=== PATIENT | male | born 1945 | race Caucasian/White ===

== ENCOUNTER 2019-04-11 17:48 | Emergency (ER) | payer MEDICARE ==
[2019-04-11] MEDS ORDERED: Sodium Chloride 0.9% 1000 ML 1,000 ML IV STA (18:03)
[2019-04-11] MEDS ORDERED: Sodium Chloride 0.9% 1000 ML 1,000 ML ONE (18:09)
--- NOTE | 2019-04-11 18:13 | ERPHSYRPT ---
- History of Present Illness Historian: patient Exam Limitations: no limitations Patient Subjective Stated Complaint: pt here for flank pain since friday, he was dx with UTI. he states he is not better and has chills and nausea today Triage Nursing Assessment: pt alert, resp easy, skin w/d/p, abd soft, Timing/Duration: today Abdominal Pain Onset Location: flank (right) Pain Radiation: groin Severity of Pain-Max: moderate Severity of Pain-Current: moderate Modifying Factors: Improves With: nothing Associated Symptoms: nausea Previous symptoms: no prior history Hx Influenza Vaccination/Date Given: No Hx Pneumococcal Vaccination/Date Given: No Immunizations Up to Date: Yes <KEYA LAM - Last Filed: 04/11/19 19:04> <LROI ROJO - Last Filed: 04/11/19 20:30> - History of Present Illness Time Seen by Provider: 04/11/19 18:10 Physician History: 73-year-old male with significant past medical history of prostatic hyperplasia , type 2 diabetes mellitus, hypertension, obesity was in his usual state of health for 5 days ago. He was seen in the office and was treated for urinary tract infection as well as prostatitis. Since morning today he started having a right sided flank pain which was radiating to the right groin, associated with some nausea. He was also complaining of some fever with chills. Patient came to the emergency room for further evaluation. (KEYA LAM) Allergies/Adverse Reactions: No Known Drug Allergies Allergy (Unverified 04/11/19 18:05) - Review of Systems Constitutional: No Fever, No Chills Eyes: No Symptoms Ears, Nose, & Throat: No Symptoms Respiratory: No Cough, No Dyspnea Cardiac: No Chest Pain, No Edema, No Syncope Abdominal/Gastrointestinal: Abdominal Pain, No Nausea, No Vomiting, No Diarrhea Genitourinary Symptoms: Dysuria, Flank Pain (right side) Musculoskeletal: No Back Pain, No Neck Pain Skin: No Rash Neurological: No Dizziness, No Focal Weakness, No Sensory Changes Psychological: No Symptoms Endocrine: No Symptoms All Other Systems: Reviewed and Negative <KEYA LAM - Last Filed: 04/11/19 19:04> - Past Medical History Pertinent Past Medical History: Yes Cardiac History: High Cholesterol, Hypertension Endocrine Medical History: Diabetes Type II Other Medical History: [facility] 2019 - Past Surgical History Past Surgical History: Yes Other Surgical History: carpal tunnel - Social History Smoking Status: Never smoker Exposure to second hand smoke: No Drug Use: none Patient Lives Alone: No <GENARO - Last Filed: 04/11/19 19:04> - Physical Exam General Appearance: no apparent distress, alert Eye Exam: PERRL/EOMI, eyes nml inspection Ears, Nose, Throat Exam: normal ENT inspection, pharynx normal, moist mucous membranes Neck Exam: normal inspection, non-tender, supple, full range of motion Respiratory Exam: normal breath sounds, lungs clear, No respiratory distress Cardiovascular Exam: regular rate/rhythm, normal heart sounds Gastrointestinal/Abdomen Exam: soft, tenderness (right side CVA), No mass Back Exam: normal inspection, normal range of motion, No CVA tenderness, No vertebral tenderness Extremity Exam: normal inspection, normal range of motion, pelvis stable Neurologic Exam: alert, oriented x 3, cooperative, normal mood/affect, nml cerebellar function, sensation nml, No motor deficits Skin Exam: normal color, warm, dry SpO2: 98 <GENARO - Last Filed: 04/11/19 19:04> - Nursing Vital Signs Nursing Vital Signs: Initial Vital Signs Temperature 97.9 F 04/11/19 18:00 Pulse Rate 66 04/11/19 18:00 Respiratory Rate 16 04/11/19 18:00 Blood Pressure 159/72 04/11/19 18:00 O2 Sat by Pulse Oximetry 98 04/11/19 18:00 Pain Scale Pain Intensity 3 - Course Nursing assessment & vital signs reviewed: Yes - CT Exams Abdomen/Pelvis CT Interpretation: Tele-radiologist Report <GENARO - Last Filed: 04/11/19 19:04> Ordered Tests: Active Orders 24 hr Category Date Time Status ABDOMEN AND PELVIS W/0 CONTRAS [CT] Stat Exams 04/11/19 19:07 Taken CBC W DIFF Stat Lab 04/11/19 18:03 Completed CMP Stat Lab 04/11/19 18:03 Completed CULTURE,URINE Stat Lab 04/11/19 18:04 Ordered UA W/RFX UR CULTURE Stat Lab 04/11/19 19:26 Completed Medication Summary Discontinued Medications Generic Name Dose Route Start Last Admin Trade Name Freq PRN Reason Stop Dose Admin Sodium Chloride 1,000 mls @ 999 mls/hr 04/11/19 18:03 04/11/19 18:11 Sodium Chloride 0.9% 1000 Ml IV 04/11/19 19:03 999 mls/hr .Q1H1M STA Administration Sodium Chloride Confirm 04/11/19 18:09 Sodium Chloride 0.9% 1000 Ml Administered 04/11/19 18:10 Dose 1,000 mls @ ud .ROUTE .STK-MED ONE Lab/Rad Data: Laboratory Result Diagrams 04/11/19 18:03 04/11/19 18:03 Laboratory Results 04/11/19 04/11/19 04/11/19 Range/Units 19:26 18:03 18:03 WBC 13.8 H (4.0-10.5) K/mm3 RBC 4.85 (4.1-5.6) M/mm3 Hgb 14.1 (12.5-18.0) gm/dl Hct 43.9 (42-50) % MCV 90.5 (78-100) fl MCH 29.1 (26-32) pg MCHC 32.1 (32-36) g/dl RDW 14.8 H (11.5-14.0) % Plt Count 162 (150-450) K/mm3 MPV 12.8 H (6-9.5) fl Gran % 74.9 H (36.0-66.0) % Eos # (Auto) 0.08 (0-0.5) Absolute Lymphs (auto) 1.63 (1.0-4.6) Absolute Monos (auto) 1.72 H (0.0-1.3) Lymphocytes % 11.8 L (24.0-44.0) % Monocytes % 12.4 H (0.0-12.0) % Eosinophils % 0.6 (0.00-5.0) % Basophils % 0.3 (0.0-0.4) % Absolute Granulocytes 10.36 H (1.4-6.9) Basophils # 0.04 (0-0.4) Sodium 147 H (137-145) mmol/L Potassium 4.6 (3.5-5.1) mmol/L Chloride 102 (98-107) mmol/L Carbon Dioxide 31 H (22-30) mmol/L Anion Gap 18.1 H (5-15) MEQ/L BUN 33 H (9-20) mg/dL Creatinine 1.86 H (0.66-1.25) mg/dL Estimated GFR 38.1 ML/MIN Glucose 58 L (74-106) mg/dL Calcium 11.1 H (8.4-10.2) mg/dL Total Bilirubin 0.80 (0.2-1.3) mg/dL AST 22 (17-59) U/L ALT 18 (0-50) U/L Alkaline Phosphatase 72 (38-126) U/L Serum Total Protein 7.8 (6.3-8.2) g/dL Albumin 4.1 (3.5-5.0) g/dL Urine Color YELLOW (YELLOW) Urine Appearance CLEAR (CLEAR) Urine pH 5.0 (5-6) Ur Specific Pierce 1.018 (1.005-1.025) Urine Protein NEGATIVE (Negative) Urine Ketones NEGATIVE (NEGATIVE) Urine Blood NEGATIVE (0-5) Buddy/ul Urine Nitrite NEGATIVE (NEGATIVE) Urine Bilirubin NEGATIVE (NEGATIVE) Urine Urobilinogen NEGATIVE (0-1) mg/dL Ur Leukocyte Esterase NEGATIVE (NEGATIVE) Urine WBC (Auto) 0-2 (0-5) /HPF Urine RBC (Auto) NONE (0-2) /HPF U Epithel Cells (Auto) NONE (FEW) /HPF Urine Bacteria (Auto) NONE (NEGATIVE) /HPF Urine Mucus (Auto) SLIGHT (NEGATIVE) /HPF Urine Culture Reflexed ORDERED SEPARATELY (NO) Urine Glucose NEGATIVE (NEGATIVE) mg/dL <KEYA LAM - Last Filed: 04/11/19 19:04> - Progress Counseled pt/family regarding: lab results, diagnosis, need for follow-up, rad results <LORI ROJO - Last Filed: 04/11/19 20:30> - Progress Progress Note: 04/11/19 19:[address] Rojo (KEYA LAM) 04/11/19 20:25 ct abd/pelvis-right ureterolithiasis 7 to 8m at right ureteropelvic junction mild right hydronephrosis and mild perinephric stranding (LORI ROJO) <KEYA LAM - Last Filed: 04/11/19 19:04> - Departure Departure Disposition: Home Critical Care Time: No <LORI ROJO - Last Filed: 04/11/19 20:30> - Departure Clinical Impression: Ureterolithiasis Condition: Stable Referrals: KEYA LAM MD [Primary Care Provider] - Additional Instructions: drink plenty of fluids. take medication as prescribed. follow up tomorrow with urologist as discussed. Prescriptions: Hydrocodone/APAP 5-325 Tab^^^ [[place] 5-325 Tablet^^^] 1 tab PO Q6HPRN PRN #10 tablet MDD 6 PRN Reason: Pain
[2019-04-11 18:56] LABS: Absolute Neutrophil Ct (ANC) 10.36 (1.4-6.9); BASOPHIL % 0.3 % (0.0-0.4); Basophil (Absolute #) 0.04 (0-0.4); Eosinophil % 0.6 % (0.00-5.0); Eosinophil (Absolute #) 0.08 (0-0.5); Hematocrit 43.9 % (42-50); Hemoglobin 14.1 gm/dl (12.5-18.0); Lymphocyte (Absolute #) 1.63 (1.0-4.6); Lymphocytes % 11.8 % (24.0-44.0); Mean Cell Volume 90.5 fl (78-100); Mean Corpuscular Hemoglobin 29.1 pg (26-32); Mean Corpuscular Hgb Concent. 32.1 g/dl (32-36); Mean Platelet Volume 12.8 fl (6-9.5); Monocyte (Absolute #) 1.72 (0.0-1.3); Monocytes % 12.4 % (0.0-12.0); Neutrophil % 74.9 % (36.0-66.0); Platelet Count 162 K/mm3 (150-450); Red Blood Count 4.85 M/mm3 (4.1-5.6); Red Cell Distribution Width 14.8 % (11.5-14.0); White Blood Count 13.8 K/mm3 (4.0-10.5)
[2019-04-11 19:08] LABS: ALBUMIN 4.1 g/dL (3.5-5.0); ANION GAP 18.1 MEQ/L (5-15); BILIRUBIN,TOTAL 0.8 mg/dL (0.2-1.3); Calcium 11.1 mg/dL (8.4-10.2); Creatinine 1 1.86 mg/dL (0.66-1.25); Potassium 4.6 mmol/L (3.5-5.1); Total Protein 7.8 g/dL (6.3-8.2)
[2019-04-11 19:27] VITALS: O2SAT 97
[2019-04-11 19:37] LABS: Appearance CLEAR (CLEAR); Bilirubin NEGATIVE (NEGATIVE); Blood NEGATIVE Ery/ul (0-5); Glucose NEGATIVE (NEGATIVE); Ketones NEGATIVE (NEGATIVE); Leukocyte Esterase NEGATIVE (NEGATIVE); Mucus SLIGHT /HPF (NEGATIVE); Nitrite NEGATIVE (NEGATIVE); Protein,Urine Dip NEGATIVE (Negative); Specific Gravity 1.018 (1.005-1.025); Urobilinogen NEGATIVE mg/dL (0-1); WBC 0-2 /HPF (0-5)
[2019-04-11] MEDS ORDERED: Hydromorphone 1 mg/ml Ampule IV ONE (20:30)
[2019-04-11] MEDS ORDERED: Zofran 4 MG/2 ML VIAL IV ONE (20:31)
[2019-04-11] MEDS ORDERED: NORCO 5/325 MG PO ONE (20:34)
[2019-04-11] MEDS ORDERED: Zofran 4 MG/2 ML VIAL ONE (20:34)
[2019-04-11] MEDS ORDERED: Hydromorphone 1 mg/ml Ampule ONE (20:35)
[2019-04-11] MEDS ORDERED: NORCO 5/325 MG ONE (21:12)
[2019-04-11 21:47] VITALS: BP 145/60; PULSE 70
[2019-04-12 00:50] LABS: Slide Review 1 YES
--- NOTE | 2019-04-12 09:16 | XRAY ---
Indication: Right flank pain. Multiple contiguous axial images obtained through the abdomen and pelvis without contrast as ordered. Comparison: None Lung bases demonstrate minimal bibasilar dependent atelectasis. No infiltrate or effusion. Heart is not enlarged. Noncontrasted stomach and bowel loops appear nonobstructed. Normal appendix. Mild diffuse scattered colonic fecal debris and scattered colonic diverticulosis, greatest in the sigmoid colon. No free fluid/air. There is a 8 mm right UVJ calculus with moderate hydronephrosis and mild renal edema. A few additional punctate right renal calculi. 1.2 cm left mid renal exophytic cyst. 19.5 cm fatty hepatomegaly. Remaining liver, gallbladder, pancreas, spleen, adrenal glands, left kidney, left ureter, and bladder appear unremarkable for noncontrast exam. Mild scattered vascular calcifications. No AAA. Osseous structures intact with moderate degenerative changes throughout the thoracolumbar spine. Impression: 1. 8 mm right UVJ calculus producing obstructive uropathy as detailed. Additional right renal micro-calculi. 2. Incidental left renal cyst, fatty hepatomegaly, mild fecal stasis, and colonic diverticulosis. Comment: Preliminary interpretation was made by [facility]. No critical discrepancy. CTDI 23.68
== END 2019-04-11 21:47 | disposition home or self-care (01) ==
LOC: ED 17:48
DX: N13.2 Hydronephrosis with renal and ureteral calculous obstruction (principal)
CPT/HCPCS: 36415; 74176; 80053; 81001; 85025; 87086; 96360; 96374; 96375; 99284; J1170; J2405; A9270-GY

== ENCOUNTER 2019-04-14 11:15 | Emergency (ER) | payer MEDICARE ==
--- NOTE | 2019-04-14 11:39 | ERPHSYRPT ---
- History of Present Illness Time Seen by Provider: 04/14/19 11:33 Source: patient, family, old records Exam Limitations: no limitations Physician History: PT IS A 73 Y/O MALE PRESENTS C/O SWEATS AND GENERALIZED WEAKNESS SINCE LAST PM. RECENTLY SEEN FOR URETEROLITHIASIS WHICH DISCOMFORT HAS RESOLVED. NO CP/SOB/N/V/ FEVER/CHILLS/DYSRIA/HEAMTURIA/URGENCY/FREQU. NO MELENA. NO PALPIATIONS/ UNILATERAL WEAKNESS/VISUAL CHANGES/DYSARTHRIA/AMS. NO FALLS OR SYNCOPE. FEELS GLOBALLY WEAK AND LIGHTHEADED. DID NOT TAKE TEMPERATURE PMHX KIDNEY STONES, HTN, DM DYSLIPID PSHX HANDS MEDS REVIEWED ALL NKDA DENIES TOB/ETOH/ILLICITHS FHX NEG CAD RETIRED Allergies/Adverse Reactions: No Known Drug Allergies Allergy (Verified 04/14/19 11:46) Home Medications: Amlodipine Besylate 10 mg PO DAILY 04/14/19 [History] Aspirin [[place] Aspirin EC] 81 mg PO DAILY 04/14/19 [History] Bisoprolol/Hydrochlorothiazide [Bisoprolol-Hctz 10-6.25 mg Tab] 10 mg PO DAILY 04/14/19 [History] Gabapentin [Gralise] 300 mg PO DAILY 04/14/19 [History] Glimepiride 4 mg [Amaryl 4 mg] 4 mg PO BID 04/14/19 [History] Lisinopril 40 mg PO DAILY 04/14/19 [History] Pioglitazone HCl 30 mg PO DAILY 04/14/19 [History] Pravastatin Sodium 40 mg PO DAILY 04/14/19 [History] Sitagliptin Phos/Metformin HCl [Janumet Xr 100-1,000 mg Tablet] 100 mg PO DAILY 04/14/19 [History] Hx Influenza Vaccination/Date Given: No Hx Pneumococcal Vaccination/Date Given: No - Review of Systems Constitutional: No Symptoms, Weakness, Other (SWEATS), No Fever, No Chills, No Fatigue, No Lethargy, No Malaise, No Night Sweats, No Weight Loss Eyes: No Symptoms, No Discharge, No Eye Pain, No Eye Redness, No Itchy, No Photophobia, No Tearing, No Vision Changes, No Double Vision, No Foreign Body Sensation Ears, Nose, & Throat: No Symptoms, No Ear Pain, No Ear Discharge, No Hearing Changes, No Tinnitus, No Nose Congestion, No Nose Discharge, No Epistaxis, No Mouth Pain, No Mouth Swelling, No Throat Pain, No Throat Swelling, No Hoarse, No Painful Swallowing, No Stridor Respiratory: No Symptoms, No Cough, No Cyanosis, No Dyspnea, No Dyspnea on Exertion (MEJÍA), No Stridor, No Wheezing Cardiac: No Symptoms, No Chest Pain, No Edema, No Palpitations, No Syncope, No Orthopnea Abdominal/Gastrointestinal: No Symptoms, No Abdominal Pain, No Nausea, No Vomiting, No Diarrhea, No Constipation, No Hematemesis, No Hematochezia, No Melena, No Dysphagia, No Appetite Changes Genitourinary Symptoms: No Symptoms, No Dysuria, No Frequency, No Hematuria, No Hesitancy, No Incontinence, No Urgency, No Urinary Retention, No Flank Pain Musculoskeletal: No Symptoms, No Arthralgias, No Back Pain, No Neck Pain, No Deformity, No Fall, No Injury, No Joint Redness, No Joint Pain, No Joint Swelling, No Myalgias Skin: No Symptoms, No Cellulitis, No Decubiti, No Induration, No Pruritis, No Rash, No Skin Lesions, No Dryness Neurological: No Symptoms, No Dizziness, No Focal Weakness, No Gait Changes, No Headache, No Irritability, No Lethargy, No Paralysis, No Parasthesia, No Seizure , No Sensory Changes, No Speech Changes, No Tics, No Tremors, No Vertigo Psychological: No Symptoms, No Alcohol Abuse, No Drug Abuse, No Anxiety, No Depression, No Suicidal Ideations, No Homicidal Ideations, No Emotional Lability , No Hallucinations, No Memory Loss, No Mood Changes Endocrine: No Symptoms, No Polyuria, No Polydipsia, No Hair Changes, No Cold Intolerance, No Excessive Sweating, No Goiter Hematologic/Lymphatic: No Symptoms, No Anemia, No Blood Clots, No Easy Bleeding , No Gum Bleeding, No Easy Bruising, No Adenopathy Immunological/Allergic: No Symptoms All Other Systems: Reviewed and Negative - Past Medical History Pertinent Past Medical History: Yes Cardiac History: High Cholesterol, Hypertension Endocrine Medical History: Diabetes Type II Other Medical History: [facility] 2018 - Past Surgical History Past Surgical History: Yes Other Surgical History: carpal tunnel - Social History Smoking Status: Never smoker Exposure to second hand smoke: No Drug Use: none Patient Lives Alone: No - Nursing Vital Signs Nursing Vital Signs: Initial Vital Signs Temperature 97.4 F 04/14/19 11:39 Pulse Rate 104 H 04/14/19 11:39 Respiratory Rate 18 04/14/19 11:39 Blood Pressure 178/93 04/14/19 11:39 O2 Sat by Pulse Oximetry 99 04/14/19 11:39 Pain Scale Pain Intensity 0 - Physical Exam General Appearance: no apparent distress, alert, other (PALE) Eye Exam: PERRL/EOMI, eyes nml inspection, other (fundi normal caity), No scleral icterus, No pale conjunctivae, No photophobia, No EOM palsy/anisocoria Ears, Nose, Throat Exam: normal ENT inspection, TMs normal, pharynx normal, TM abnormal (L), other (uvula midline, floor of mouth soft), No moist mucous membranes, No dry mucous membranes, No TM abnormal (R), No pharyngeal erythema, No tonsillar exudate Neck Exam: normal inspection, non-tender, supple, full range of motion, No meningismus, No mass, No Brudzinski, No Kernig's, No carotid bruit, No JVD, No limited range of motion, No lymphadenopathy, No midline tenderness, No thyromegaly Respiratory Exam: normal breath sounds, lungs clear, airway intact, No chest tenderness, No respiratory distress, No diminished breath sounds, No accessory muscle use, No prolonged expirations, No crackles/rales, No rhonchi, No wheezing , No stridor, No pleural rub Cardiovascular Exam: regular rate/rhythm, normal heart sounds, normal peripheral pulses, capillary refill <2 sec, No murmur, No friction rub, No gallop, No tachycardia, No bradycardia, No irregular, No capillary refill 2-3 sec, No capillary refill >3 sec, No edema, No pulse deficit Gastrointestinal/Abdomen Exam: soft, normal bowel sounds, No tenderness, No distention, No mass, No guarding, No ecchymosis, No pulsatile mass, No rebound, No hernia, No hepatomegaly, No organomegaly, No splenomegaly, No bruit Male Genitalia Exam: normal genitalia Rectal Exam: deferred Back Exam: normal inspection, normal range of motion, other (neg slr caity, no sacral anesthesia, dtr 2/4 caity patella), No CVA tenderness, No vertebral tenderness, No rash, No decreased range of motion, No muscle spasm, No point tenderness Extremity Exam: normal inspection, normal range of motion, pelvis stable, No amputations, No contusions, No calf tenderness, No deformities, No lacerations, No parasthesia, No paralysis, No inflammation, No joint swelling, No limited range of motion, No pedal edema, No swelling, No tenderness Neurologic Exam: alert, oriented x 3, cooperative, graphics manager II-XII nml as tested, normal mood/affect, nml cerebellar function, nml station & gait, sensation nml, No motor deficits, No sensory deficit, No disoriented, No confusion, No agitation, No uncooperative, No intoxicated appearance, No depressed mood/affect , No motor weakness, No facial droop, No slurred speech, No aphasia, No dysarthria, No abnormal gait, No abnormal cerebellar tests, No abnormal graphics manager II- XII, No EOM palsy Skin Exam: normal color, warm, dry, No rash, No petechiae, No jaundice, No abrasion, No cyanosis, No diaphoresis, No decubitus, No embolic lesions, No ecchymosis, No jaundice, No laceration, No mottled, No pale Lymphatic Exam: No adenopathy SpO2 Interpretation: normal O2 Delivery: Room Air - Course Nursing assessment & vital signs reviewed: Yes EKG Interpreted by Me: RATE (61), Sinus Rhythm, NORMAL AXIS, NORMAL INTERVALS, NORMAL ST-T Ordered Tests: Active Orders 24 hr Category Date Time Status Accucheck STAT Care 04/14/19 11:46 Active Ambulate Patient ROUTINE Care 04/14/19 13:09 Active Pipe Racker STAT Care 04/14/19 11:47 Active EKG-ER Only STAT Care 04/14/19 11:46 Active EKG-ER Only STAT Care 04/14/19 13:43 Active IV Insertion STAT Care 04/14/19 11:46 Active Orthostatic Vital Signs STAT Care 04/14/19 11:46 Active CHEST 2 VIEWS (PA AND LAT) Stat Exams 04/14/19 13:59 Completed HEAD WITHOUT CONTRAST [CT] Stat Exams 04/14/19 14:05 Completed CBC W DIFF Stat Lab 04/14/19 11:46 Completed CMP Stat Lab 04/14/19 11:46 Completed Lactic Acid Stat Lab 04/14/19 12:00 Completed Manual Differential NC Stat Lab 04/14/19 11:46 Completed TROPONIN Q3H Lab 04/14/19 11:46 Completed TROPONIN Q3H Lab 04/14/19 14:20 Completed TROPONIN Q3H Lab 04/14/19 18:00 Ordered TROPONIN Q3H Lab 04/14/19 21:00 Ordered TROPONIN Q3H Lab 04/15/19 00:00 Ordered TROPONIN Q3H Lab 04/15/19 01:45 Ordered UA W/RFX UR CULTURE Stat Lab 04/14/19 11:46 Completed Medication Summary Discontinued Medications Generic Name Dose Route Start Last Admin Trade Name Freq PRN Reason Stop Dose Admin Sodium Chloride 1,000 mls @ 999 mls/hr 04/14/19 11:46 04/14/19 13:08 Sodium Chloride 0.9% 1000 Ml IV 04/14/19 12:46 Infused .Q1H1M STA Infusion Sodium Chloride Confirm 04/14/19 11:53 Sodium Chloride 0.9% 1000 Ml Administered 04/14/19 11:54 Dose 1,000 mls @ ud .ROUTE .K-MED ONE Lab/Rad Data: Laboratory Result Diagrams 04/14/19 11:46 04/14/19 11:46 Laboratory Results 04/14/19 04/14/19 04/14/19 Range/Units 14:20 12:00 11:46 WBC (4.0-10.5) K/mm3 RBC (4.1-5.6) M/mm3 Hgb (12.5-18.0) gm/dl Hct (42-50) % MCV (78-100) fl MCH (26-32) pg MCHC (32-36) g/dl RDW (11.5-14.0) % Plt Count (150-450) K/mm3 MPV (6-9.5) fl Segmented Neutrophils (36.-66.) % Lymphocytes (Manual) (24-44) % Monocytes (Manual) (0.0-12.0) % Eosinophils (Manual) (0.00-3.0) % Basophils (Manual) (0.0-1.0) % Platelet Estimate (NORMAL) RBC Morphology Sodium (137-145) mmol/L Potassium (3.5-5.1) mmol/L Chloride (98-107) mmol/L Carbon Dioxide (22-30) mmol/L Anion Gap (5-15) MEQ/L BUN (9-20) mg/dL Creatinine (0.66-1.25) mg/dL Estimated GFR ML/MIN Glucose (74-106) mg/dL Lactic Acid 1.9 (0.4-2.0) Calcium (8.4-10.2) mg/dL Total Bilirubin (0.2-1.3) mg/dL AST (17-59) U/L ALT (0-50) U/L Alkaline Phosphatase (38-126) U/L Troponin I 0.023 0.022 (0.000-0.034) ng/mL Serum Total Protein (6.3-8.2) g/dL Albumin (3.5-5.0) g/dL Urine Color (YELLOW) Urine Appearance (CLEAR) Urine pH (5-6) Ur Specific [place] (1.005-1.025) Urine Protein (Negative) Urine Ketones (NEGATIVE) Urine Blood (0-5) Buddy/ul Urine Nitrite (NEGATIVE) Urine Bilirubin (NEGATIVE) Urine Urobilinogen (0-1) mg/dL Ur Leukocyte Esterase (NEGATIVE) Urine WBC (Auto) (0-5) /HPF Urine RBC (Auto) (0-2) /HPF U Epithel Cells (Auto) (FEW) /HPF Urine Bacteria (Auto) (NEGATIVE) /HPF Urine Mucus (Auto) (NEGATIVE) /HPF Urine Culture Reflexed (NO) Urine Glucose (NEGATIVE) mg/dL 04/14/19 04/14/19 04/14/19 Range/Units 11:46 11:46 11:46 WBC 11.4 H (4.0-10.5) K/mm3 RBC 5.07 (4.1-5.6) M/mm3 Hgb 14.6 (12.5-18.0) gm/dl Hct 45.8 (42-50) % MCV 90.3 (78-100) fl MCH 28.8 (26-32) pg MCHC 31.9 L (32-36) g/dl RDW 14.6 H (11.5-14.0) % Plt Count 173 (150-450) K/mm3 MPV 13.0 H (6-9.5) fl Segmented Neutrophils 80 H (36.-66.) % Lymphocytes (Manual) 8 L (24-44) % Monocytes (Manual) 10 (0.0-12.0) % Eosinophils (Manual) 1 (0.00-3.0) % Basophils (Manual) 1 (0.0-1.0) % Platelet Estimate NORMAL (NORMAL) RBC Morphology NORMAL Sodium 145 (137-145) mmol/L Potassium 3.8 (3.5-5.1) mmol/L Chloride 101 (98-107) mmol/L Carbon Dioxide 30 (22-30) mmol/L Anion Gap 18.0 H (5-15) MEQ/L BUN 21 H (9-20) mg/dL Creatinine 1.16 (0.66-1.25) mg/dL Estimated GFR > 60.0 ML/MIN Glucose 160 H (74-106) mg/dL Lactic Acid (0.4-2.0) Calcium 10.2 (8.4-10.2) mg/dL Total Bilirubin 0.80 (0.2-1.3) mg/dL AST 32 (17-59) U/L ALT 19 (0-50) U/L Alkaline Phosphatase 78 (38-126) U/L Troponin I (0.000-0.034) ng/mL Serum Total Protein 8.4 H (6.3-8.2) g/dL Albumin 4.3 (3.5-5.0) g/dL Urine Color COLORLESS (YELLOW) Urine Appearance CLEAR (CLEAR) Urine pH 6.0 (5-6) Ur Specific [place] 1.003 (1.005-1.025) Urine Protein NEGATIVE (Negative) Urine Ketones NEGATIVE (NEGATIVE) Urine Blood NEGATIVE (0-5) Buddy/ul Urine Nitrite NEGATIVE (NEGATIVE) Urine Bilirubin NEGATIVE (NEGATIVE) Urine Urobilinogen NEGATIVE (0-1) mg/dL Ur Leukocyte Esterase NEGATIVE (NEGATIVE) Urine WBC (Auto) NONE (0-5) /HPF Urine RBC (Auto) NONE (0-2) /HPF U Epithel Cells (Auto) NONE (FEW) /HPF Urine Bacteria (Auto) NONE (NEGATIVE) /HPF Urine Mucus (Auto) SLIGHT (NEGATIVE) /HPF Urine Culture Reflexed NO (NO) Urine Glucose 50 (NEGATIVE) mg/dL - Progress Progress: improved Progress Note: 04/14/19 13:09 NOT ORTHOSTATIC EKG AND TROP NEG NO CP/SOB NEG UA MILD DEHYDRATION AWAIT CXR IS NEG, PLAN DC WITH FUP. 04/14/19 14:12 ER PRELIM CXR IS NAD 04/14/19 14:42 EKG #[address]UTE [address]/T CHANGES OR INTERVAL CHANGES @55 SINUS BRADYCARDIA 04/14/19 14:43 AMBULATES WITHOUT DIFFICULTY FEELING IMPROVED NO EVIDENCE OF HEART BLOCK NOT ORTHOSTATIC NO EVIDENCE OF SEPSIS/INFECTION AFEBRILE 04/14/19 15:17 TROP #2 NEG WILL DC WITH FUP ALL QUESTIONS ANSWERED TO PT SATISFACTION Counseled pt/family regarding: drug and/or alcohol abuse, lab results, diagnosis , need for follow-up, rad results, smoking cessation - Departure Departure Disposition: Home Clinical Impression: Generalized weakness, Dehydration Condition: Good Critical Care Time: No Referrals: KEYA LAM MD [Primary Care Provider] - Additional Instructions: TO ER IF UNILATERAL WEAKNESS, VISUAL CHANGES, SPEECH CHANGES, ALTERATION IN MENTAL STATUS, FAINTING, PALPITATIONS YOUR LABS AND IMAGING WERE GROSSLY UNREMARKABLE WE GAVE YOU HYDRATION PLEASE FOLLOW UP WITH YOUR DOCTOR IN 2-3 DAYS FOR RE-EVALUATION AND DEFINITIVE CARE
[2019-04-14] MEDS ORDERED: Sodium Chloride 0.9% 1000 ML 1,000 ML IV STA (11:46)
[2019-04-14] MEDS ORDERED: Sodium Chloride 0.9% 1000 ML 1,000 ML ONE (11:53)
[2019-04-14 12:00] LABS: Hematocrit 45.8 % (42-50); Hemoglobin 14.6 gm/dl (12.5-18.0); Mean Cell Volume 90.3 fl (78-100); Mean Corpuscular Hemoglobin 28.8 pg (26-32); Mean Corpuscular Hgb Concent. 31.9 g/dl (32-36); Platelet Count 173 K/mm3 (150-450); Red Blood Count 5.07 M/mm3 (4.1-5.6); Red Cell Distribution Width 14.6 % (11.5-14.0); White Blood Count 11.4 K/mm3 (4.0-10.5)
[2019-04-14 12:11] LABS: Lactic Acid 1.9 (0.4-2.0)
[2019-04-14 12:37] LABS: ALBUMIN 4.3 g/dL (3.5-5.0); ALKALINE PHOSPHATASE 78 U/L (38-126); BLOOD UREA NITROGEN 21 mg/dL (9-20); CHLORIDE 101 mmol/L (98-107); Calcium 10.2 mg/dL (8.4-10.2); Carbon Dioxide 30 mmol/L (22-30); Creatinine 1 1.16 mg/dL (0.66-1.25); Glucose 160 mg/dL (74-106); Potassium 3.8 mmol/L (3.5-5.1); SGOT/AST 32 U/L (17-59); SGPT/ALT 19 U/L (0-50); SODIUM 145 mmol/L (137-145); Total Protein 8.4 g/dL (6.3-8.2)
[2019-04-14 12:53] LABS: Appearance CLEAR (CLEAR); Bilirubin NEGATIVE (NEGATIVE); Blood NEGATIVE Ery/ul (0-5); Glucose 50 mg/dL (NEGATIVE); Ketones NEGATIVE (NEGATIVE); Leukocyte Esterase NEGATIVE (NEGATIVE); Mucus SLIGHT /HPF (NEGATIVE); Nitrite NEGATIVE (NEGATIVE); Protein,Urine Dip NEGATIVE (Negative); Specific Gravity 1.003 (1.005-1.025); Urobilinogen NEGATIVE mg/dL (0-1)
[2019-04-14 14:00] LABS: Basophil 1 % (0.0-1.0); Eosinophil 1 % (0.00-3.0); Lymphocytes 8 % (24-44); Monocyte 10 % (0.0-12.0); Neutrophils 80 % (36.-66.); Platelet Estimate NORMAL (NORMAL); Total Cells Counted 100
--- NOTE | 2019-04-14 14:11 | XRAY ---
Indication: Cough. Comparison: None PA/lateral chest clear. Heart and mediastinal structures within normal limits. Bony thorax intact with mild degenerative changes. Impression: Nonacute chest.
--- NOTE | 2019-04-14 14:24 | XRAY ---
Indication: Generalized weakness. Multiple contiguous axial images obtained through the head without contrast. Comparison: None Ventriculosulcal pattern appears symmetric. Minimal periventricular degenerative micro-ischemia bilaterally. Tiny remote right basal ganglia and left thalamic lacunar infarcts. No acute intracranial hemorrhage, abnormal extra-axial fluid collection, or mass effect. Fourth ventricle is midline without hydrocephalus. [place]-white matter differentiation preserved. Bony calvarium intact with previous right mastoidectomy. Remaining visualized paranasal sinuses and left mastoid air cells are clear. Impression: 1. Minimal degenerative micro-ischemia within normal limits for patient's age. Also remote bilateral lacunar infarcts. 2. No acute intracranial abnormalities. 3. Previous right mastoidectomy. CT DI 68.15
[2019-04-14 15:49] VITALS: BP 155/63; PULSE 56; O2SAT 98
== END 2019-04-14 15:50 | disposition home or self-care (01) ==
LOC: ED 11:15
DX: M62.81 Muscle weakness (generalized) (principal); E86.0 Dehydration; I10 Essential (primary) hypertension; E78.5 Hyperlipidemia, unspecified; E11.9 Type 2 diabetes mellitus without complications; E78.00 Pure hypercholesterolemia, unspecified; Z87.442 Personal history of urinary calculi; Z79.899 Other long term (current) drug therapy
CPT/HCPCS: 36000; 36415; 70450; 71046; 80053; 81001; 82962; 83605; 84484; 85025; 93005; 93041; 96360; 99285